=== PATIENT | male | born 1970 | race Caucasian/White ===

== ENCOUNTER 2017-03-03 00:36 | Emergency (ER) | payer BC ==
[2017-03-03] MEDS ORDERED: METHYLPREDNISOLONE ACETATE 80 MG/ML VIAL IM ONE (01:33)
[2017-03-03] MEDS ORDERED: DEXAMETHASONE SOD PHOSPHATE 10 MG/ML VIAL IM ONE (01:33)
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
[2017-03-03] MEDS ORDERED: METHYLPREDNISOLONE ACETATE 80 MG/ML VIAL ONE (01:50)
[2017-03-03] MEDS ORDERED: DEXAMETHASONE SOD PHOSPHATE 10 MG/ML VIAL ONE (01:50)
[2017-03-03 02:13] VITALS: BP 140/74
== END 2017-03-03 02:05 | disposition home or self-care (01) ==
LOC: ER 00:36
DX: L23.7 Allergic contact dermatitis due to plants, except food (principal)